=== PATIENT | female | born 1985 | race Caucasian/White ===

== ENCOUNTER 2017-08-06 15:03 | Inpatient (IN) | payer MEDICAID ==
[~2017-08-06] VITALS: Ht 175.3 cm; Wt 63.6 kg
[~2017-08-06 15:03] MED LIST: CLON-529 PO
[2017-08-06] MEDS ORDERED: normal saline 1000ML IV soln IVB ONE (15:15)
[2017-08-06] MEDS ORDERED: naloxone 2mg/2ml inj IV ONE (15:15)
[2017-08-06] MEDS ORDERED: LORazepam 2 mg/ml vial IV ONE (15:30)
[2017-08-06] MEDS ORDERED: haloperidol lactate 5mg/ml inj IM ONE (15:30)
[2017-08-06] MEDS ORDERED: diphenhydrAMINE 50 mg/ml inj IV ONE (15:30)
[2017-08-06] MEDS ORDERED: normal saline 1000ml 1,000 ML IV ONE (20:00)
[2017-08-06 20:37] LABS: CLARITY,URINE CLEAR (Clear); COLOR,URINE STRAW (Yellow); GLUCOSE, URINE NEGATIVE (Neg); KETONES,URINE NEGATIVE (Neg); LEUKOCYTE ESTERASE ,URINE TRACE (Neg); NITRITES, URINE NEGATIVE (Neg); OCCULT BLOOD,URINE TRACE-INTACT (Neg); PARTIAL THROMBOPLASTIN TIME 23 SECONDS (22-32); PH,URINE 6.5 (4.8-8.0); PROTEIN,URINE NEGATIVE (Neg); PROTHROMBIN TIME 10.8 SECONDS (9.0-12.0); UROBILINOGEN,URINE 0.2 E.U/dL (0.2-1.0)
[2017-08-06 20:39] LABS: BASOPHILS % (AUTO) 0.4 % (0-1); EOSINOPHILS % (AUTO) 0 % (0-6); HEMATOCRIT 29.2 % (35.0-45.0); HEMOGLOBIN 9.4 g/dl (12.0-16.0); LYMPHOCYTES # (AUTO) 3.8 X10'3 (1.1-4.8); LYMPHOCYTES % (AUTO) 37.6 % (21-51); MEAN CORPUSCULAR HEMOGLOBIN 22.5 PG (27.0-31.0); MEAN CORPUSCULAR HGB CONC 32.4 % (33.0-36.5); MEAN CORPUSCULAR VOLUME 69.4 FL (78-98); MONOCYTES # (AUTO) 0.3 X10'3 (0-0.9); MONOCYTES % (AUTO) 2.7 % (2-12); NEUTROPHILS % (AUTO) 59.3 % (42-75); PLATELET COUNT 358 X10'3 (140-440); RED BLOOD COUNT 4.21 X10'6 (4.20-5.60); RED CELL DISTRIBUTION WIDTH 17.1 % (11.5-14.5); UA COLLECTION TYPE STRAIGHT CATH; WHITE BLOOD COUNT 10.2 X10'3 (4.5-11.0)
[2017-08-06 20:43] LABS: HYALINE CASTS 0-3 /LPF (NEGATIVE); MUCUS STRANDS FEW /LPF (Neg); SQUAMOUS EPITHELIAL CELL,UR FEW /LPF (FEW)
[2017-08-06 20:44] LABS: BACTERIA,URINE 1+ /HPF (Neg); RBC,URINE 0-2 /HPF (0-2)
[2017-08-06 20:45] LABS: LACTIC SEPSIS 2.4 MMOL/L (0.4-2.0)
[2017-08-06 20:48] LABS: URINE AMPHETAMINE SCREEN POSITIVE (Neg); URINE BARBITUATE SCREEN NEGATIVE (Neg); URINE BENZODIAZEPINES SCREEN NEGATIVE (Neg); URINE CANNABINOID SCREEN NEGATIVE (Neg); URINE COCAINE SCREEN NEGATIVE (Neg); URINE METHADONE SCREEN NEGATIVE (Neg); URINE OPIATE SCREEN POSITIVE (Neg); URINE PHENCYCLIDINE SCREEN NEGATIVE (Neg)
[2017-08-06 20:49] LABS: ANISOCYTOSIS 1+; MICROCYTOSIS 2+; PLATELET ESTIMATE NORMAL; POLYCHROMASIA FEW
[2017-08-06 20:51] LABS: ALANINE AMINOTRANSFERASE 24 U/L (12-78); ALBUMIN 3.1 G/DL (3.4-5.0); ALBUMIN/GLOBULIN RATIO 0.6 (1.1-1.5); ALKALINE PHOSPHATASE 173 IU/L (46-116); ANION GAP 13 (8-16); ASPARTATE AMINO TRANSFERASE 37 U/L (10-37); BILIRUBIN,TOTAL 0.2 MG/DL (0.1-1.0); CALCIUM 8.2 MG/DL (8.5-10.1); CHLORIDE 110 MMOL/L (99-107); ETHANOL 0.219 GM/DL (0.0-0.010); GLUCOSE 109 MG/DL (70-104); POTASSIUM 3.5 MMOL/L (3.5-5.1); SODIUM 147 MMOL/L (135-145); TOTAL CARBON DIOXIDE 24.3 MMOL/L (24-32); TOTAL PROTEIN 8.7 G/DL (6.4-8.2)
[2017-08-06 21:04] LABS: BLOOD UREA NITROGEN 4 MG/DL (7-18); BUN/CREATININE RATIO 6.3 (6.6-38.0); CREATININE 0.64 MG/DL (0.40-0.90); eGFR > 90 ML/MIN
[2017-08-06] MEDS ORDERED: QUET25TA34 PO (22:16)
[2017-08-06] MEDS ORDERED: CLON0.1T20 PO (22:16)
[2017-08-06] MEDS ORDERED: CLON1TAB4 PO (22:16)
[2017-08-06] MEDS ORDERED: GABA-534 PO (22:16)
[2017-08-06] MEDS ORDERED: OXYC20TA40 PO (22:16)
[2017-08-06] MEDS ORDERED: FLUO-1 PO (22:16)
[2017-08-06] MEDS ORDERED: MORP30TA6 PO (22:16)
[2017-08-06] MEDS ORDERED: ondansetron/PF 4mg/2ml inj IV PRN (23:30)
[2017-08-06] MEDS ORDERED: dextrose 50%-water 50ml dispensing syringe IV PRN (23:30)
[2017-08-06] MEDS ORDERED: loperamide 2mg capsule PO PRN (23:30)
[2017-08-06] MEDS ORDERED: LORazepam 1 MG tablet PO PRN (23:30)
[2017-08-06] MEDS ORDERED: acetaminophen 325mg tablet PO PRN (23:30)
[2017-08-06] MEDS ORDERED: thiamine 100mg/ml 2ml inj. IV ONE (23:30)
[2017-08-06] MEDS ORDERED: naloxone 0.4 mg/ml inj IV PRN (23:40)
[2017-08-06 23:50] VITALS: BP 126/81
[2017-08-07] VITALS (7 sets, daily range): BP systolic 106–142; BP diastolic 59–90
[2017-08-07] MEDS: normal saline 1000ml 1,000 ML IV SCH ×4 (01:03→13:56)
[2017-08-07] MEDS: LORazepam 2 mg/ml vial IV PRN ×4 (04:21→19:02)
[2017-08-07 05:35] LABS: BASOPHILS % (AUTO) 0.3 % (0-1); EOSINOPHILS # (AUTO) 0.1 X10'3 (0-0.9); EOSINOPHILS % (AUTO) 1.1 % (0-6); HEMATOCRIT 26.6 % (35.0-45.0); HEMOGLOBIN 8.6 g/dl (12.0-16.0); LYMPHOCYTES # (AUTO) 3.3 X10'3 (1.1-4.8); MEAN CORPUSCULAR HEMOGLOBIN 22.2 PG (27.0-31.0); MEAN CORPUSCULAR HGB CONC 32.3 % (33.0-36.5); MEAN CORPUSCULAR VOLUME 68.7 FL (78-98); MEAN PLATELET VOLUME 8.1 FL (7.4-10.4); MONOCYTES # (AUTO) 0.8 X10'3 (0-0.9); MONOCYTES % (AUTO) 8.5 % (2-12); NEUTROPHILS # (AUTO) 5.7 X10'3 (1.8-7.7); NEUTROPHILS % (AUTO) 57.1 % (42-75); PLATELET COUNT 330 X10'3 (140-440); RED BLOOD COUNT 3.86 X10'6 (4.20-5.60); RED CELL DISTRIBUTION WIDTH 16.7 % (11.5-14.5)
[2017-08-07 06:05] LABS: ALBUMIN 2.9 G/DL (3.4-5.0); ANION GAP 10 (8-16); BLOOD UREA NITROGEN 5 MG/DL (7-18); BUN/CREATININE RATIO 6.5 (6.6-38.0); CALCIUM 8.3 MG/DL (8.5-10.1); CHLORIDE 105 MMOL/L (99-107); CREATININE 0.77 MG/DL (0.40-0.90); GLUCOSE 110 MG/DL (70-104); POTASSIUM 3.9 MMOL/L (3.5-5.1); SODIUM 140 MMOL/L (135-145); TOTAL CARBON DIOXIDE 25.2 MMOL/L (24-32); eGFR 88 ML/MIN
[2017-08-07 07:11] LABS: PLATELET ESTIMATE NORMAL
[2017-08-07] MEDS: thiamine 100mg tablet PO SCH (07:11)
[2017-08-07 07:12] LABS: ANISOCYTOSIS 1+; HYPOCHROMASIA 1+; MICROCYTOSIS 2+
[2017-08-07] MEDS: folic acid 1mg tablet PO SCH (07:12)
[2017-08-07 07:18] LABS: SPHEROCYTES 1+; STOMATOCYTES 2+; TARGET CELLS 1+
[2017-08-07 07:19] LABS: POLYCHROMASIA 1+
[2017-08-07] MEDS ORDERED: ipratropium 0.5 MG/2.5ML nebule IH PRN (08:10)
[2017-08-07 09:37] LABS: HIV ANTIBODY 1&2 RAPID NON-REACTIVE (Neg)
[2017-08-07 10:51] LABS: ABG BASE EXCESS 0.7 mmol/L (-2.0-3.0); ABG HCO3 23.6 mmol/L (22.0-26.0); ABG OXYGEN SATURATION 97.3 % (95-98); ABG PCO2 (T) 31.3 mmHg (32.0-45.0); ABG PH (T) 7.495 (7.350-7.450); ABG PO2 (T) 90.2 mmHg (83-108); FCOHb 0.3 % (0.5-1.5); FMetHb 0.1 % (0.3-1.12); FO2Hb 96.9 % (94-100); TOTAL HEMOGLOBIN 9.9 G/dl (12.0-16.0)
[2017-08-07] MEDS ORDERED: ketorolac tromethamine 15mg/ml inj. IV SCH (14:00)
[2017-08-07] MEDS ORDERED: oxyCODONE IR 5mg (immed. release) tablet PO PRN (17:25)
[2017-08-07] MEDS: gabapentin 400mg capsule PO SCH (20:41)
[2017-08-07] MEDS: cloNIDine 0.1 mg tablet PO SCH (20:44)
[2017-08-07] MEDS: clonazePAM 1mg tablet PO PRN (20:49)
[2017-08-07] MEDS ORDERED: clonazePAM 1mg tablet PO SCH (21:00)
[2017-08-08] VITALS (12 sets, daily range): BP systolic 102–129; BP diastolic 65–85
[2017-08-08] MEDS ORDERED: morphine ER 30mg tablet PO SCH
[2017-08-08] MEDS: QUEtiapine 25mg tablet PO SCH ×4 (00:59→23:11)
[2017-08-08] MEDS: ketorolac tromethamine 15mg/ml inj. IV PRN (05:02)
[2017-08-08 06:30] LABS: BASOPHILS # (AUTO) 0.1 X10'3 (0-0.2); BASOPHILS % (AUTO) 0.6 % (0-1); EOSINOPHILS # (AUTO) 0.1 X10'3 (0-0.9); EOSINOPHILS % (AUTO) 0.7 % (0-6); HEMATOCRIT 29.7 % (35.0-45.0); HEMOGLOBIN 9.9 g/dl (12.0-16.0); LYMPHOCYTES # (AUTO) 3.1 X10'3 (1.1-4.8); LYMPHOCYTES % (AUTO) 29.7 % (21-51); MEAN CORPUSCULAR HEMOGLOBIN 22.5 PG (27.0-31.0); MEAN CORPUSCULAR HGB CONC 33.4 % (33.0-36.5); MEAN CORPUSCULAR VOLUME 67.6 FL (78-98); MEAN PLATELET VOLUME 8.2 FL (7.4-10.4); MONOCYTES # (AUTO) 0.8 X10'3 (0-0.9); MONOCYTES % (AUTO) 7.6 % (2-12); NEUTROPHILS # (AUTO) 6.5 X10'3 (1.8-7.7); NEUTROPHILS % (AUTO) 61.4 % (42-75); PLATELET COUNT 311 X10'3 (140-440); RED BLOOD COUNT 4.39 X10'6 (4.20-5.60); RED CELL DISTRIBUTION WIDTH 16.4 % (11.5-14.5); WHITE BLOOD COUNT 10.5 X10'3 (4.5-11.0)
[2017-08-08 06:34] LABS: ALBUMIN 3.1 G/DL (3.4-5.0); ANION GAP 12 (8-16); BLOOD UREA NITROGEN 8 MG/DL (7-18); BUN/CREATININE RATIO 9.2 (6.6-38.0); CALCIUM 9.6 MG/DL (8.5-10.1); CHLORIDE 103 MMOL/L (99-107); CREATININE 0.87 MG/DL (0.40-0.90); GLUCOSE 180 MG/DL (70-104); POTASSIUM 3.6 MMOL/L (3.5-5.1); SODIUM 139 MMOL/L (135-145); TOTAL CARBON DIOXIDE 24.3 MMOL/L (24-32); eGFR 76 ML/MIN
[2017-08-08] MEDS: gabapentin 400mg capsule PO SCH ×3 (07:48→20:58)
[2017-08-08] MEDS: folic acid 1mg tablet PO SCH (07:50)
[2017-08-08] MEDS: thiamine 100mg tablet PO SCH (07:50)
[2017-08-08] MEDS: FLUoxetine 20mg capsule PO SCH (07:50)
[2017-08-08] MEDS: LORazepam 2 mg/ml vial IV PRN (07:55)
[2017-08-08] MEDS: ringers solution, lacted 1,000 ML IV SCH (10:15)
[2017-08-08] MEDS: vancomycin/NS 1 GM ADD-VANTAGE 250 ML IV SCH ×2 (11:38→19:07)
[2017-08-08] MEDS: oxyCODONE/APAP 10/325mg tablet PO PRN ×2 (11:58→20:22)
[2017-08-08 11:59] LABS: HCG SERUM QL NEGATIVE
[2017-08-08] MEDS ORDERED: iohexol 300mg/ml 100ml inj. ONE (12:12)
[2017-08-08] MEDS ORDERED: LIDOcaine 1% 30ml vial 0 ML ONE (13:59)
[2017-08-08] MEDS ORDERED: bacitracin 15gm ointment TP ONE (13:59)
[2017-08-08] MEDS ORDERED: ceFAZolin 1000mg inj ONE (13:59)
[2017-08-08] MEDS ORDERED: BUPIVAcaine/PF 2.5 mg/ml (0.25%) 30ml vial ONE (13:59)
[2017-08-08] MEDS ORDERED: dexamethasone sod phosphate 4mg/ml inj. ONE (14:00)
[2017-08-08] MEDS ORDERED: sevoflurane 250ml liquid IH ONE (14:00)
[2017-08-08] MEDS ORDERED: midazolam 2 mg/2 ml injection ONE (14:06)
[2017-08-08] MEDS ORDERED: propofol inj 20 ML IV ONE (14:06)
[2017-08-08] MEDS ORDERED: LIDOcaine 2% (20mg/ml) 5ml vial ONE (14:06)
[2017-08-08] MEDS ORDERED: fentaNYL/PF 50MCG/1 ML 2ML syringe ONE (14:06)
[2017-08-08] MEDS ORDERED: ringers solution, lacted 1,000 ML IV SCH (14:08)
[2017-08-08] MEDS ORDERED: hydrALAZINE 20mg/ml inj. IV PRN (14:10)
[2017-08-08] MEDS ORDERED: ondansetron/PF 4mg/2ml inj IV PRN (14:10)
[2017-08-08] MEDS ORDERED: labetalol 5mg/ml 20ml inj. IV PRN (14:10)
[2017-08-08] MEDS ORDERED: morphine 2 MG/ML inj. syringe IV PRN ×2 (14:10)
[2017-08-08] MEDS ORDERED: fentaNYL/PF 50MCG/1 ML 2ML syringe IV PRN ×2 (14:10)
[2017-08-08] MEDS ORDERED: ondansetron/PF 4mg/2ml inj ONE (14:19)
[2017-08-08 15:15] LABS: HBSAG SCREEN Negative (Negative); HEP A AB, IGM Negative (Negative); HEP B CORE AB, IGM Negative (Negative); HEPATITIS C ANTIBODY >11.0 s/co ratio (0.0-0.9)
[2017-08-08] MEDS: LORazepam 1 MG tablet PO PRN (19:17)
[2017-08-08] MEDS: cloNIDine 0.1 mg tablet PO SCH (20:58)
[2017-08-09 02:00] VITALS: BP 110/56
[2017-08-09] MEDS: vancomycin/NS 1 GM ADD-VANTAGE 250 ML IV SCH ×4 (02:27→19:41)
[2017-08-09] MEDS: LORazepam 2 mg/ml vial IV PRN ×4 (02:27→18:27)
[2017-08-09] MEDS: clonazePAM 1mg tablet PO PRN ×2 (04:56→17:09)
[2017-08-09 06:00] VITALS: BP 110/65
[2017-08-09] MEDS: ringers solution, lacted 1,000 ML IV SCH (06:15)
[2017-08-09 06:37] LABS: BASOPHILS % (AUTO) 0.3 % (0-1); EOSINOPHILS # (AUTO) 0.1 X10'3 (0-0.9); EOSINOPHILS % (AUTO) 0.8 % (0-6); HEMATOCRIT 27.3 % (35.0-45.0); HEMOGLOBIN 8.8 g/dl (12.0-16.0); LYMPHOCYTES # (AUTO) 2.4 X10'3 (1.1-4.8); LYMPHOCYTES % (AUTO) 25.1 % (21-51); MEAN CORPUSCULAR HEMOGLOBIN 22.1 PG (27.0-31.0); MEAN CORPUSCULAR HGB CONC 32.3 % (33.0-36.5); MEAN CORPUSCULAR VOLUME 68.5 FL (78-98); MEAN PLATELET VOLUME 8.1 FL (7.4-10.4); MONOCYTES # (AUTO) 0.6 X10'3 (0-0.9); MONOCYTES % (AUTO) 5.8 % (2-12); NEUTROPHILS # (AUTO) 6.6 X10'3 (1.8-7.7); PLATELET COUNT 306 X10'3 (140-440); RED BLOOD COUNT 3.99 X10'6 (4.20-5.60); RED CELL DISTRIBUTION WIDTH 16.9 % (11.5-14.5); WHITE BLOOD COUNT 9.8 X10'3 (4.5-11.0)
[2017-08-09 06:51] LABS: ALBUMIN 2.8 G/DL (3.4-5.0); ANION GAP 10 (8-16); BLOOD UREA NITROGEN 12 MG/DL (7-18); BUN/CREATININE RATIO 18.2 (6.6-38.0); CALCIUM 9.2 MG/DL (8.5-10.1); CHLORIDE 103 MMOL/L (99-107); CREATININE 0.66 MG/DL (0.40-0.90); GLUCOSE 155 MG/DL (70-104); POTASSIUM 4.3 MMOL/L (3.5-5.1); SODIUM 139 MMOL/L (135-145); TOTAL CARBON DIOXIDE 25.8 MMOL/L (24-32); eGFR > 90 ML/MIN
[2017-08-09 07:02] LABS: ANISOCYTOSIS 1+; MICROCYTOSIS 2+; PLATELET ESTIMATE NORMAL
[2017-08-09 07:03] LABS: POIKILOCYTOSIS FEW; POLYCHROMASIA FEW
[2017-08-09] MEDS: thiamine 100mg tablet PO SCH (07:51)
[2017-08-09] MEDS: gabapentin 400mg capsule PO SCH ×3 (07:51→22:45)
[2017-08-09] MEDS: QUEtiapine 25mg tablet PO SCH ×2 (07:51→15:30)
[2017-08-09] MEDS: folic acid 1mg tablet PO SCH (07:52)
[2017-08-09] MEDS: oxyCODONE/APAP 10/325mg tablet PO PRN ×3 (07:53→22:44)
[2017-08-09] MEDS: FLUoxetine 20mg capsule PO SCH (07:55)
[2017-08-09] MEDS ORDERED: VANCOMYCIN LEVEL IV ONE (10:30)
[2017-08-09 11:00] VITALS: BP 112/65
[2017-08-09 15:00] VITALS: BP 114/66
[2017-08-09] MEDS: lactobacillus rhamnosus 10,000 MMU CELLS/CAPSULE PO SCH (17:09)
[2017-08-09 18:00] VITALS: BP 107/66
[2017-08-09 22:00] VITALS: BP 117/55
[2017-08-09] MEDS: cloNIDine 0.1 mg tablet PO SCH (22:44)
[2017-08-10] MEDS: QUEtiapine 25mg tablet PO SCH ×3 (01:07→16:13)
[2017-08-10 02:00] VITALS: BP 96/54
[2017-08-10] MEDS: vancomycin/NS 1 GM ADD-VANTAGE 250 ML IV SCH ×3 (03:00→19:40)
[2017-08-10] MEDS: LORazepam 1 MG tablet PO PRN ×2 (03:50→11:22)
[2017-08-10 05:50] LABS: BASOPHILS % (AUTO) 0.4 % (0-1); EOSINOPHILS # (AUTO) 0.2 X10'3 (0-0.9); EOSINOPHILS % (AUTO) 1.6 % (0-6); HEMATOCRIT 28.8 % (35.0-45.0); HEMOGLOBIN 9.2 g/dl (12.0-16.0); LYMPHOCYTES # (AUTO) 4.4 X10'3 (1.1-4.8); LYMPHOCYTES % (AUTO) 45.9 % (21-51); MEAN CORPUSCULAR HGB CONC 31.9 % (33.0-36.5); MEAN CORPUSCULAR VOLUME 69.1 FL (78-98); MEAN PLATELET VOLUME 8.5 FL (7.4-10.4); MONOCYTES # (AUTO) 0.6 X10'3 (0-0.9); MONOCYTES % (AUTO) 6.6 % (2-12); NEUTROPHILS # (AUTO) 4.4 X10'3 (1.8-7.7); NEUTROPHILS % (AUTO) 45.5 % (42-75); PLATELET COUNT 316 X10'3 (140-440); RED BLOOD COUNT 4.17 X10'6 (4.20-5.60); RED CELL DISTRIBUTION WIDTH 16.6 % (11.5-14.5); WHITE BLOOD COUNT 9.7 X10'3 (4.5-11.0)
[2017-08-10 05:55] LABS: ALBUMIN 2.7 G/DL (3.4-5.0); ANION GAP 9 (8-16); BLOOD UREA NITROGEN 17 MG/DL (7-18); BUN/CREATININE RATIO 20.5 (6.6-38.0); CALCIUM 8.7 MG/DL (8.5-10.1); CHLORIDE 103 MMOL/L (99-107); CREATININE 0.83 MG/DL (0.40-0.90); GLUCOSE 138 MG/DL (70-104); POTASSIUM 4.1 MMOL/L (3.5-5.1); SODIUM 138 MMOL/L (135-145); TOTAL CARBON DIOXIDE 26.5 MMOL/L (24-32); eGFR 81 ML/MIN
[2017-08-10 06:00] VITALS: BP 95/56
[2017-08-10 07:18] LABS: ANISOCYTOSIS 1+; MICROCYTOSIS 2+; PLATELET ESTIMATE NORMAL; POLYCHROMASIA 1+
[2017-08-10] MEDS: levoFLOXACIN-Levaquin 750MG/D5 150 ML IV SCH ×2 (08:00→08:05)
[2017-08-10] MEDS ORDERED: cefTRIAXone 1g/NS 100ml IVPB 100 ML IV SCH (08:00)
[2017-08-10] MEDS: gabapentin 400mg capsule PO SCH ×3 (08:04→22:14)
[2017-08-10] MEDS: lactobacillus rhamnosus 10,000 MMU CELLS/CAPSULE PO SCH ×2 (08:04→16:13)
[2017-08-10] MEDS: FLUoxetine 20mg capsule PO SCH (08:04)
[2017-08-10] MEDS: thiamine 100mg tablet PO SCH (08:05)
[2017-08-10] MEDS: folic acid 1mg tablet PO SCH (08:05)
[2017-08-10] MEDS: levoFLOXACIN 750MG TABLET PO SCH (11:22)
[2017-08-10 11:57] VITALS: BP 103/69
[2017-08-10] MEDS: oxyCODONE/APAP 10/325mg tablet PO PRN ×2 (13:29→19:58)
[2017-08-10] MEDS: clonazePAM 1mg tablet PO PRN ×2 (14:18→22:29)
[2017-08-10 16:51] VITALS: BP 109/72
[2017-08-10 18:00] VITALS: BP 97/60
[2017-08-10 22:00] VITALS: BP 113/78
[2017-08-10] MEDS: cloNIDine 0.1 mg tablet PO SCH (22:14)
[2017-08-11] VITALS (7 sets, daily range): BP systolic 86–117; BP diastolic 43–71
[2017-08-11] MEDS: QUEtiapine 25mg tablet PO SCH ×3 (00:33→15:56)
[2017-08-11] MEDS: oxyCODONE/APAP 10/325mg tablet PO PRN ×3 (01:30→15:58)
[2017-08-11] MEDS: vancomycin/NS 1 GM ADD-VANTAGE 250 ML IV SCH ×3 (03:02→20:02)
[2017-08-11 05:13] LABS: BASOPHILS % (AUTO) 0.5 % (0-1); EOSINOPHILS # (AUTO) 0.2 X10'3 (0-0.9); EOSINOPHILS % (AUTO) 2.1 % (0-6); HEMATOCRIT 25.8 % (35.0-45.0); HEMOGLOBIN 8.4 g/dl (12.0-16.0); LYMPHOCYTES # (AUTO) 4.1 X10'3 (1.1-4.8); LYMPHOCYTES % (AUTO) 43.1 % (21-51); MEAN CORPUSCULAR HEMOGLOBIN 22.5 PG (27.0-31.0); MEAN CORPUSCULAR HGB CONC 32.8 % (33.0-36.5); MEAN CORPUSCULAR VOLUME 68.6 FL (78-98); MEAN PLATELET VOLUME 8.2 FL (7.4-10.4); MONOCYTES # (AUTO) 0.7 X10'3 (0-0.9); MONOCYTES % (AUTO) 7.2 % (2-12); NEUTROPHILS # (AUTO) 4.5 X10'3 (1.8-7.7); NEUTROPHILS % (AUTO) 47.1 % (42-75); PLATELET COUNT 308 X10'3 (140-440); RED BLOOD COUNT 3.76 X10'6 (4.20-5.60); RED CELL DISTRIBUTION WIDTH 16.3 % (11.5-14.5); WHITE BLOOD COUNT 9.6 X10'3 (4.5-11.0)
[2017-08-11 05:27] LABS: ALBUMIN 2.6 G/DL (3.4-5.0); ANION GAP 7 (8-16); BLOOD UREA NITROGEN 18 MG/DL (7-18); BUN/CREATININE RATIO 24.7 (6.6-38.0); CHLORIDE 103 MMOL/L (99-107); CREATININE 0.73 MG/DL (0.40-0.90); GLUCOSE 124 MG/DL (70-104); SODIUM 139 MMOL/L (135-145); TOTAL CARBON DIOXIDE 28.9 MMOL/L (24-32); eGFR > 90 ML/MIN
[2017-08-11 07:15] LABS: ANISOCYTOSIS 1+; PLATELET ESTIMATE NORMAL
[2017-08-11 07:16] LABS: MICROCYTOSIS 2+
[2017-08-11] MEDS: folic acid 1mg tablet PO SCH (08:10)
[2017-08-11] MEDS: thiamine 100mg tablet PO SCH (08:10)
[2017-08-11] MEDS: FLUoxetine 20mg capsule PO SCH (08:10)
[2017-08-11] MEDS: gabapentin 400mg capsule PO SCH ×3 (08:10→20:02)
[2017-08-11] MEDS: lactobacillus rhamnosus 10,000 MMU CELLS/CAPSULE PO SCH ×2 (08:10→17:05)
[2017-08-11] MEDS: clonazePAM 1mg tablet PO PRN ×2 (08:24→13:54)
[2017-08-11] MEDS: levoFLOXACIN 750MG TABLET PO SCH (11:49)
[2017-08-11] MEDS ORDERED: oxyCODONE/APAP 10/325mg tablet PO PRN (16:25)
[2017-08-11] MEDS: ketorolac tromethamine 15mg/ml inj. IV PRN (17:06)
[2017-08-11] MEDS: morphine ER 15mg tablet PO SCH (20:02)
[2017-08-11] MEDS: cloNIDine 0.1 mg tablet PO SCH (21:00)
[2017-08-12] MEDS: QUEtiapine 25mg tablet PO SCH ×2 (00:04→07:26)
[2017-08-12] MEDS: clonazePAM 1mg tablet PO PRN ×2 (00:04→11:16)
[2017-08-12 02:00] VITALS: BP 109/70
[2017-08-12] MEDS: vancomycin/NS 1 GM ADD-VANTAGE 250 ML IV SCH ×2 (03:08→11:13)
[2017-08-12 05:51] LABS: BASOPHILS % (AUTO) 0.4 % (0-1); EOSINOPHILS # (AUTO) 0.1 X10'3 (0-0.9); EOSINOPHILS % (AUTO) 1.4 % (0-6); HEMATOCRIT 25.3 % (35.0-45.0); HEMOGLOBIN 8.3 g/dl (12.0-16.0); LYMPHOCYTES # (AUTO) 3.3 X10'3 (1.1-4.8); LYMPHOCYTES % (AUTO) 36.3 % (21-51); MEAN CORPUSCULAR HEMOGLOBIN 22.2 PG (27.0-31.0); MEAN CORPUSCULAR HGB CONC 32.8 % (33.0-36.5); MEAN CORPUSCULAR VOLUME 67.9 FL (78-98); MEAN PLATELET VOLUME 8.9 FL (7.4-10.4); MONOCYTES # (AUTO) 0.8 X10'3 (0-0.9); MONOCYTES % (AUTO) 8.7 % (2-12); NEUTROPHILS # (AUTO) 4.9 X10'3 (1.8-7.7); NEUTROPHILS % (AUTO) 53.2 % (42-75); PLATELET COUNT 298 X10'3 (140-440); RED BLOOD COUNT 3.73 X10'6 (4.20-5.60); RED CELL DISTRIBUTION WIDTH 16.5 % (11.5-14.5); WHITE BLOOD COUNT 9.2 X10'3 (4.5-11.0)
[2017-08-12 05:58] LABS: ALBUMIN 2.6 G/DL (3.4-5.0); ANION GAP 5 (8-16); BLOOD UREA NITROGEN 19 MG/DL (7-18); CALCIUM 8.8 MG/DL (8.5-10.1); CHLORIDE 101 MMOL/L (99-107); CREATININE 0.76 MG/DL (0.40-0.90); GLUCOSE 139 MG/DL (70-104); POTASSIUM 4.2 MMOL/L (3.5-5.1); SODIUM 136 MMOL/L (135-145); TOTAL CARBON DIOXIDE 29.6 MMOL/L (24-32); eGFR 89 ML/MIN
[2017-08-12 06:00] VITALS: BP 109/70
[2017-08-12] MEDS: ketorolac tromethamine 15mg/ml inj. IV PRN (06:25)
[2017-08-12] MEDS: morphine ER 15mg tablet PO SCH (07:25)
[2017-08-12] MEDS: lactobacillus rhamnosus 10,000 MMU CELLS/CAPSULE PO SCH (07:25)
[2017-08-12] MEDS: FLUoxetine 20mg capsule PO SCH (07:26)
[2017-08-12] MEDS: gabapentin 400mg capsule PO SCH ×2 (07:26→12:41)
[2017-08-12] MEDS: folic acid 1mg tablet PO SCH (07:26)
[2017-08-12] MEDS: thiamine 100mg tablet PO SCH (07:26)
[2017-08-12 07:46] LABS: ANISOCYTOSIS 1+; MICROCYTOSIS 2+; PLATELET ESTIMATE NORMAL
[2017-08-12 11:00] VITALS: BP 99/58
[2017-08-12] MEDS: levoFLOXACIN 750MG TABLET PO SCH (11:13)
[2017-08-12] MEDS ORDERED: hydrOXYzine 10 MG tablet PO PRN (13:20)
[2017-08-12] MEDS ORDERED: FOLI1TAB16 PO (13:44)
[2017-08-12] MEDS ORDERED: CLON0.1T20 PO (13:44)
[2017-08-12] MEDS ORDERED: THI100T PO (13:44)
[2017-08-12] MEDS ORDERED: CLE150C PO (13:44)
[2017-08-12] MEDS ORDERED: FLUO-1 PO (13:44)
[2017-08-12] MEDS ORDERED: clindamycin 150mg capsule PO SCH (14:00)
[2017-08-12] MEDS ORDERED: QUET25TA34 PO (15:12)
[2017-08-12] MEDS ORDERED: HYDR-3717 PO (15:12)
== END 2017-08-12 16:44 | disposition home or self-care (01) | DRG 720 ==
LOC: ER 15:04 → ED HOLD 22:33 → PCU 3S 23:53
PROVIDERS: ADMIT Family Medicine; ATTEND Internal Medicine
PROC: 0H9HXZZ Drainage of Right Upper Leg Skin, External Approach (ICD-10-PCS; 2017-08-08)
PROC: B42F1ZZ Computerized Tomography (CT Scan) of Right Lower Extremity Arteries using Low Osmolar Contrast (ICD-10-PCS; principal; 2017-08-08 14:00)
DX: A41.9 Sepsis, unspecified organism (principal); G93.41 Metabolic encephalopathy; E87.0 Hyperosmolality and hypernatremia; F11.29 Opioid dependence with unspecified opioid-induced disorder; T40.1X1A Poisoning by heroin, accidental (unintentional), initial encounter; L02.415 Cutaneous abscess of right lower limb; F15.29 Other stimulant dependence with unspecified stimulant-induced disorder; D50.9 Iron deficiency anemia, unspecified; F10.239 Alcohol dependence with withdrawal, unspecified; N39.0 Urinary tract infection, site not specified; M54.9 Dorsalgia, unspecified; G89.29 Other chronic pain; F11.23 Opioid dependence with withdrawal; F31.9 Bipolar disorder, unspecified; F41.9 Anxiety disorder, unspecified; Z80.1 Family history of malignant neoplasm of trachea, bronchus and lung; Z82.49 Family history of ischemic heart disease and other diseases of the circulatory system; Z79.899 Other long term (current) drug therapy; Z59.0 Homelessness; Z88.2 Allergy status to sulfonamides; Y92.89 Other specified places as the place of occurrence of the external cause
CPT/HCPCS: 36415; 36600; 70450; 71045; 73706; 80048; 80053; 80074; 80202; 80305; 80320; 81001; 82140; 82803; 82948; 83605; 84145; 84484; 84703; 85018; 85025; 85610; 85730; 86703; 87040; 87070; 87075; 87076; 87077; 87088; 87186; 93005; 93306; 94640; 94760; 96361; 96372; 96374; 96375; 99285; A4353; A6243; A6253; A6258; A6446; A6449; A7000; A9270; J0690; J0696; J1100; J1200; J1630; J1885; J1956; J2001; J2060; J2250; J2405; J2704; J3010; J3370; J3411; J3490; J7030; J7120; Q9967